=== PATIENT | female | born 1950 | race Caucasian/White ===

== ENCOUNTER 2018-10-18 15:47 | Emergency (ER) | payer OTHER ==
[~2018-10-18] VITALS: Ht 154.9 cm; Wt 80.9 kg
[2018-10-18 15:48] VITALS: Ht 154.9 cm; Wt 80.9 kg
[2018-10-18] MEDS ORDERED: MACRODANTIN100 MG PO (15:52)
[2018-10-18] MEDS ORDERED: OMEPRAZOLE40 MG PO (15:53)
[2018-10-18] MEDS ORDERED: LEVOXYL25 MCG PO (15:54)
[2018-10-18] MEDS ORDERED: GLUCOPHAGE500 MG PO (15:54)
[2018-10-18] MEDS ORDERED: GLUCOTROL 5 MG T5 MG PO (15:54)
[2018-10-18] MEDS ORDERED: ELAVIL25 MG PO (15:55)
[2018-10-18] MEDS ORDERED: LOPRESSOR25 MG PO (15:55)
[2018-10-18] MEDS ORDERED: TOPAMAX50 MG PO (15:55)
[2018-10-18] MEDS ORDERED: LISINOPRIL40 MG PO (15:55)
[2018-10-18] MEDS ORDERED: PRAVACHOL80 MG PO (15:56)
[2018-10-18] MEDS ORDERED: VITAMIN D5000 UNIT PO (15:56)
[2018-10-18] MEDS ORDERED: HUMULIN N100 U/ML SQ (15:56)
[2018-10-18 16:37] LABS: BASOPHILS 0.1 % (0-2); EOSINOPHILS 1.3 % (0-7); HEMATOCRIT 43.1 % (36.0-48.0); HEMOGLOBIN 14.3 g/dL (12-16); IMMATURE GRANULOCYTES 0.3 % (0-5); LYMPHOCYTES 21.5 % (15-50); MCH 29.9 pg (26.0-34.0); MCHC 33.2 g/dL (31.0-37.0); MONOCYTES 8.1 % (2-11); NEUTROPHILS 68.7 % (40-80); PLATELET COUNT 234 10x3/uL (130-400); RBC 4.79 10x6/uL (4.00-5.40); RDW 13.9 % (11.5-14.5); WBC 10.2 10x3/uL (4.8-10.8)
[2018-10-18 16:44] LABS: APPEARANCE CLEAR (CLEAR); COLOR YELLOW (YELLOW); GLUCOSE 50 mg/dL (NEGATIVE); NITRITE NEGATIVE (NEGATIVE); PROTEIN TRACE mg/dL (NEGATIVE)
[2018-10-18 16:45] LABS: BILIRUBIN NEGATIVE (NEGATIVE); KETONE NEGATIVE (NEGATIVE); UROBILINOGEN NORMAL (NORMAL)
[2018-10-18 16:46] LABS: BACTERIA FEW /hpf (NONE SEEN); EPITHELIAL CELLS 0-5 /hpf (0-5); RED CELLS - URINE 0-5 /hpf (0-5); WHITE CELLS - URINE 0-5 /hpf (0-5)
[2018-10-18 16:56] LABS: ALBUMIN 3.4 g/dL (3.4-5.0); ANION GAP 15.6 mmol/L (8-16); BILIRUBIN - TOTAL 0.21 mg/dL (0.2-1.3); CALCIUM 8.5 mg/dL (8.5-10.1); CARBON DIOXIDE 23.5 mmol/L (21.0-32.0); CREATININE - SERUM 0.9 mg/dL (0.6-1.3); POTASSIUM - SERUM 4.1 mmol/L (3.5-5.1)
[2018-10-18 19:33] VITALS: BP 120/70
== END 2018-10-18 19:33 | disposition home or self-care (01) ==
LOC: D.ER 15:47
PROVIDERS: Emergency Medicine
DX: K52.9 Noninfective gastroenteritis and colitis, unspecified (principal); K57.90 Diverticulosis of intestine, part unspecified, without perforation or abscess without bleeding

== ENCOUNTER 2018-10-21 11:10 | Emergency (ER) | payer OTHER ==
[~2018-10-21] VITALS: Ht 154.9 cm; Wt 81.8 kg
[~2018-10-21 11:10] MED LIST: ELAVIL25 MG PO; GLUCOPHAGE500 MG PO; GLUCOTROL 5 MG T5 MG PO; HUMULIN N100 U/ML SQ; LEVOXYL25 MCG PO; LISINOPRIL40 MG PO; LOPRESSOR25 MG PO; MACRODANTIN100 MG PO; OMEPRAZOLE40 MG PO; PRAVACHOL80 MG PO; TOPAMAX50 MG PO; VITAMIN D5000 UNIT PO
[2018-10-21 11:16] VITALS: Ht 154.9 cm; Wt 81.8 kg
[2018-10-21] MEDS ORDERED: MACROBID100 MG PO (11:22)
[2018-10-21 11:52] LABS: APPEARANCE CLEAR (CLEAR); COLOR YELLOW (YELLOW); NITRITE NEGATIVE (NEGATIVE); PROTEIN NEGATIVE (NEGATIVE); SPECIFIC GRAVITY 1.005 (1.005-1.020)
[2018-10-21 11:53] LABS: BILIRUBIN NEGATIVE (NEGATIVE); GLUCOSE NEGATIVE (NEGATIVE); KETONE NEGATIVE (NEGATIVE); UROBILINOGEN NORMAL (NORMAL)
[2018-10-21 11:54] LABS: BASOPHILS 0.3 % (0-2); EOSINOPHILS 1.5 % (0-7); HEMATOCRIT 42.5 % (36.0-48.0); HEMOGLOBIN 14.1 g/dL (12-16); IMMATURE GRANULOCYTES 0.2 % (0-5); LYMPHOCYTES 32.3 % (15-50); MCH 29.8 pg (26.0-34.0); MCHC 33.2 g/dL (31.0-37.0); MCV 89.9 fL (80.0-100.0); MONOCYTES 7.8 % (2-11); NEUTROPHILS 57.9 % (40-80); PLATELET COUNT 257 10x3/uL (130-400); RBC 4.73 10x6/uL (4.00-5.40); RDW 14.1 % (11.5-14.5)
[2018-10-21 12:22] LABS: AMYLASE - SERUM 45 U/L (25-115); LIPASE 225 U/L (73-393)
[2018-10-21 12:27] LABS: ALBUMIN 3.5 g/dL (3.4-5.0); ANION GAP 16.2 mmol/L (8-16); BILIRUBIN - TOTAL 0.12 mg/dL (0.2-1.3); CALCIUM 8.6 mg/dL (8.5-10.1); CARBON DIOXIDE 26.5 mmol/L (21.0-32.0); CREATININE - SERUM 0.9 mg/dL (0.6-1.3); POTASSIUM - SERUM 3.7 mmol/L (3.5-5.1)
[2018-10-21] MEDS ORDERED: LOMOTIL 2.5-0.1 EAC1 PO (12:47)
[2018-10-21 14:04] VITALS: BP 137/67
== END 2018-10-21 14:04 | disposition home or self-care (01) ==
LOC: D.ER 11:10
PROVIDERS: Emergency Medicine
DX: R19.7 Diarrhea, unspecified (principal); R10.9 Unspecified abdominal pain